=== PATIENT | male | born 1980 | race Caucasian/White ===

== ENCOUNTER 2021-07-07 09:22 | Emergency (ER) | payer SELFPAY ==
[2021-07-07 09:57] VITALS: BP 145/99; PULSE 110
[2021-07-07] MEDS ORDERED: Magnesium Sulfate/Water 2 GM in Premix Bag 1 BAG IV SCH (12:30)
[2021-07-07 13:11] LABS: CORONAVIRUS COVID-19 NAA NEGATIVE (NEGATIVE)
== END 2021-07-07 14:30 ==
LOC: JD.ED 09:22
DX: F32.A Depression, unspecified (principal); F22 Delusional disorders; F20.9 Schizophrenia, unspecified; Z20.822 Contact with and (suspected) exposure to COVID-19
CPT/HCPCS: 0240U; 36415; 80053; 80306; 80307; 81001; 83735; 85025; 86140; 99285

== ENCOUNTER 2022-11-25 19:11 | Emergency (ER) | payer MEDICAID ==
[2022-11-25] MEDS ORDERED: Midazolam 1 MG/ML 2 ML SDV IVPUSH ONE (19:18)
[2022-11-25] MEDS ORDERED: Sodium Chloride 0.9% 1,000 ML IV ONE (19:18)
[2022-11-25 19:21] VITALS: PULSE 170
[2022-11-25 19:34] LABS: BASOPHILS ABSOLUTE AUTO 0.04 K/mm3 (0.01-0.08); BASOPHILS PERCENT AUTO 0.4 % (0.1-1.2); EOSINOPHILS ABSOLUTE AUTO 0.03 K/mm3 (0.04-0.54); EOSINOPHILS PERCENT AUTO 0.3 (0.8-7.0); HEMATOCRIT 49.2 % (40.1-51.0); IMMATURE GRAN ABSOLUTE AUTO 0.03 K/mm3 (0.00-0.10); IMMATURE GRAN PERCENT AUTO 0.3 % (<=1.0); LYMPHOCYTES ABSOLUTE AUTO 2.68 K/mm3 (1.32-3.57); MEAN CORPUSCULAR HEMOGLOBIN 32.9 pg (25.7-32.2); MEAN CORPUSCULAR HGB CONC 34.6 g/dl (32.2-35.5); MEAN CORPUSCULAR VOLUME 95.3 fl (79.0-92.2); MEAN PLATELET VOLUME 11.1 fl (9.4-12.3); MONOCYTES ABSOLUTE AUTO 0.91 K/mm3 (0.30-0.82); MONOCYTES PERCENT AUTO 9.8 % (5.3-12.2); NEUTROPHILS ABSOLUTE AUTO 5.55 K/mm3 (1.78-5.38); NEUTROPHILS PERCENT AUTO 60.2 % (34.0-67.9); PLATELET COUNT,PLT 256 K/mm3 (163-337); RED BLOOD CELL COUNT 5.16 M/mm3 (4.63-6.08); WHITE BLOOD CELL COUNT,WBC 9.24 K/mm3 (4.23-9.07)
[2022-11-25 19:52] LABS: A/G RATIO 1.1 (1-2); ALBUMIN 4.4 g/dl (3.4-5.0); ANION GAP 31.1 (5-15); BILIRUBIN TOTAL 0.7 mg/dL (0.2-1.0); BUN/CREATININE RATIO 3.2 (14-18); CALCIUM 9.5 mg/dL (8.5-10.1); CREATININE 1.9 mg/dL (0.7-1.3); EST CRCL DRUG DOSING (CG) 46.17 mL/min; POTASSIUM,K 3.1 mEq/L (3.5-5.1); PROTEIN TOTAL,TP 8.3 g/dl (6.4-8.2)
[2022-11-25] MEDS ORDERED: Potassium Chloride 20 MEQ Tab.ER PO ONE (20:30)
[2022-11-25 20:42] LABS: BARBITURATE SCREEN,URINE NEGATIVE (CUTOFF=200); BENZODIAZEPINES SCREEN,URINE NEGATIVE (CUTOFF=150); BUPRENORPHINE SCREEN,URINE NEGATIVE (CUTOFF=10); METHADONE SCREEN, URINE NEGATIVE (CUT0FF=200); METHAMPHETAMINES SCREEN, URINE PRESUMPTIVE POSITIVE (CUTOFF=500); OXYCODONE SCREEN,URINE NEGATIVE (CUT0FF=100); PROPOXYPHENE SCREEN,URINE NEGATIVE (CUTOFF=300); THC SCREEN,URINE 20 NG/ML NEGATIVE (CUTOFF=50)
[2022-11-25 20:44] LABS: AMPHETAMINES SCREEN, URINE PRESUMPTIVE POSITIVE (CUTOFF=500)
[2022-11-25 23:06] VITALS: BP 139/74
== END 2022-11-25 21:12 ==
LOC: JD.ED 19:11
DX: F19.10 Other psychoactive substance abuse, uncomplicated (principal); Z86.16 Personal history of COVID-19
CPT/HCPCS: 36415; 80053; 80143; 80179; 80306; 80307; 85025; 93005; 96361; 96374; 99284; A9270; J2250; J7030; 93010

== ENCOUNTER 2023-06-12 21:07 | Emergency (ER) | payer MEDICAID, OTHER ==
[2023-06-12 21:37] VITALS: BP 135/85; PULSE 86
[2023-06-12] MEDS ORDERED: Diphtheria,Pertussis(Acell),Tetanus Vaccine 0.5 ML Syringe IM ONE (21:42)
[2023-06-12] MEDS ORDERED: Lidocaine 1% 10 ML MDV INJECT ONE (21:42)
== END 2023-06-12 22:35 | disposition home or self-care (01) ==
LOC: JD.ED 21:07
DX: S01.81XA Laceration without foreign body of other part of head, initial encounter (principal); Z86.16 Personal history of COVID-19; Z23 Encounter for immunization; V87.8XXA Person injured in other specified noncollision transport accidents involving motor vehicle (traffic), initial encounter; Y92.410 Unspecified street and highway as the place of occurrence of the external cause
CPT/HCPCS: 12002; 12013; 90471; 90715; 99282-25; 99283; J3490

== ENCOUNTER 2024-06-20 11:28 | Emergency (ER) | payer SELFPAY ==
[2024-06-20 11:39] VITALS: BP 137/116; PULSE 146
[2024-06-20] MEDS ORDERED: Lidocaine 1% 10 ML MDV INJECT ONE (11:49)
== END 2024-06-20 13:40 ==
LOC: JD.ED 11:28
DX: Z02.89 Encounter for other administrative examinations (principal); S41.112A Laceration without foreign body of left upper arm, initial encounter; Z86.16 Personal history of COVID-19; W26.8XXA Contact with other sharp object(s), not elsewhere classified, initial encounter
CPT/HCPCS: 99283

== ENCOUNTER 2024-09-09 15:35 | Emergency (ER) | payer MEDICAID ==
[2024-09-09 16:02] VITALS: BP 154/97; PULSE 155
== END 2024-09-09 16:00 ==
LOC: JD.ED 15:35
DX: S61.411A Laceration without foreign body of right hand, initial encounter (principal); Z86.16 Personal history of COVID-19; X50.9XXA Other and unspecified overexertion or strenuous movements or postures, initial encounter
CPT/HCPCS: 99283

== ENCOUNTER 2025-04-16 07:27 | Emergency (ER) | payer MEDICAID ==
[2025-04-16] MEDS ORDERED: Sodium Chloride 0.9% 10 ML Syringe FLUSH PRN (07:38)
[2025-04-16] MEDS ORDERED: Naloxone 0.4 MG/ML SDV IVPUSH PRN ×3 (07:43→08:43)
[2025-04-16 08:01] LABS: BASOPHILS ABSOLUTE AUTO 0.0 K/mm3 (0.0-0.2); BASOPHILS PERCENT AUTO 0.7 % (0.0-1.0); EOSINOPHILS ABSOLUTE AUTO 0.1 K/mm3 (0.0-0.4); EOSINOPHILS PERCENT AUTO 1.2 % (0.0-6.0); IMMATURE GRAN ABSOLUTE AUTO 0.03 K/mm3 (0.00-0.05); IMMATURE GRAN PERCENT AUTO 0.5 % (0.0-0.4); LYMPHOCYTES ABSOLUTE AUTO 2.1 K/mm3 (1.0-4.8); LYMPHOCYTES PERCENT AUTO 34.9 % (24.0-44.0); MEAN PLATELET VOLUME 10.9 fl (9.4-12.4); MONOCYTES ABSOLUTE AUTO 0.5 K/mm3 (0.0-0.8); MONOCYTES PERCENT AUTO 8.1 % (0.0-8.0); NEUTROPHILS ABSOLUTE AUTO 3.2 K/mm3 (1.8-7.7); NEUTROPHILS PERCENT AUTO 54.6 % (41.0-71.0); NRBC ABSOLUTE 0.00 (0.00-0.02); NRBC PERCENT 0.0 % (0.0-0.2); PLATELET COUNT,PLT 201 K/mm3 (150-400); RED BLOOD CELL COUNT 5.26 M/mm3 (4.52-5.90); WHITE BLOOD CELL COUNT,WBC 5.93 K/mm3 (3.9-11.3)
[2025-04-16] MEDS: Ketorolac 30 MG/ML SDV IVPUSH ONE (08:06)
[2025-04-16] MEDS: Ondansetron 4 MG/2 ML SDV IVPUSH ONE (08:08)
[2025-04-16 08:24] LABS: A/G RATIO 1.0 (1-2); ALANINE AMINOTRANSFERASE,ALT 17.0 U/L (16-63); ASPARTATE AMNIOTRANSFERASE,AST 10.0 U/L (15-37); BILIRUBIN TOTAL 0.6 mg/dL (0.2-1.0); BLOOD UREA NITROGEN,BUN 16.0 mg/dL (7-18); CARBON DIOXIDE,CO2 29.0 mEq/L (21-32); CHLORIDE,CL 105.0 mEq/L (98-107); CREATININE 1.1 mg/dL (0.7-1.3); EST CRCL DRUG DOSING (CG) 78.14 mL/min; ESTIMATED GFR 85.0 mL/min (>60); GLUCOSE RANDOM 131.0 mg/dL (70-99); POTASSIUM,K 4.0 mEq/L (3.5-5.1); PROTEIN TOTAL,TP 7.2 g/dl (6.4-8.2); SODIUM,NA 143.0 mEq/L (136-145)
[2025-04-16 08:31] LABS: LACTIC ACID 3.7 mmol/L (0.4-2.0)
[2025-04-16 10:13] LABS: APPEARANCE,URINE SLT CLOUDY (Clear); GLUCOSE,URINE NEGATIVE (Negative); OCCULT BLOOD,URINE 3+ (Negative)
[2025-04-16 10:56] LABS: EPITHELIAL CELLS,URINE 0-5 /hpf (0-5)
[2025-04-16 12:03] VITALS: BP 123/86; PULSE 77
== END 2025-04-16 11:45 | disposition home or self-care (01) ==
LOC: JD.ED 07:27
DX: N13.2 Hydronephrosis with renal and ureteral calculous obstruction (principal); Z86.16 Personal history of COVID-19; Z79.899 Other long term (current) drug therapy
CPT/HCPCS: 36415; 74176; 80053; 81001; 83605; 85025; 96374; 96375; 96376; 99284; J1885; J2270; J2405; J7030; J1171